=== PATIENT | male | born 1955 | race Caucasian/White ===

== ENCOUNTER 2025-01-05 08:44 | Emergency (ER) | payer BC, MEDICARE ==
[2025-01-05] MEDS: traMADol 50 MG Tab PO ONE (09:28)
[2025-01-05 09:29] LABS: BASOPHILS ABSOLUTE AUTO 0.05 K/uL (0.02-0.10); BASOPHILS PERCENT AUTO 0.4 % (0.0-0.5); EOSINOPHILS ABSOLUTE AUTO 0.47 K/uL (0.04-0.40); EOSINOPHILS PERCENT AUTO 3.4 % (1.0-5.0); HEMATOCRIT 40.2 % (40.0-54.0); HEMOGLOBIN 13.1 g/dL (13.0-18.0); LYMPHOCYTES ABSOLUTE AUTO 3.28 K/uL (1.50-4.00); LYMPHOCYTES PERCENT AUTO 23.9 % (20.0-40.0); MEAN CORPUSCULAR HEMOGLOBIN 27.3 pg (27.0-32.0); MEAN CORPUSCULAR HGB CONC 32.6 g/dL (31.0-35.0); MEAN CORPUSCULAR VOLUME 84 fL (76-96); MEAN PLATELET VOLUME 8.9 fL (6.0-10.0); MONOCYTES ABSOLUTE AUTO 1.03 K/uL (0.20-0.80); MONOCYTES PERCENT AUTO 7.5 % (3.0-10.0); NEUTROPHILS ABSOLUTE AUTO 8.91 K/uL (2.00-7.50); NEUTROPHILS PERCENT AUTO 64.8 % (45.0-70.0); PLATELET COUNT,PLT 313 K/uL (150-400); RED BLOOD CELL COUNT 4.79 M/uL (4.50-6.50); RED CELL DISTRIBUTION WIDTH 16.1 % (11.0-16.0); WHITE BLOOD CELL COUNT,WBC 13.7 K/uL (4.0-11.0)
[2025-01-05] MEDS: Ibuprofen 800 MG Tab PO ONE (09:49)
[2025-01-05 09:58] LABS: A/G RATIO 0.9 (0.8-2.0); ALBUMIN 3.7 g/dL (3.4-5.0); ANION GAP 15.8 mmol/L (5.0-15.0); BILIRUBIN TOTAL 0.9 mg/dL (0.0-1.0); BUN/CREATININE RATIO 9.7 (6-25); CALCIUM 9.2 mg/dL (8.5-10.1); CARBON DIOXIDE,CO2 24.4 mmol/L (21.0-32.0); CREATININE 0.93 mg/dL (0.70-1.30); EST CRCL DRUG DOSING (CG) 74.57 mL/min; POTASSIUM,K 4.2 mmol/L (3.5-5.1); PROTEIN TOTAL,TP 7.8 g/dL (6.4-8.2)
[2025-01-05 10:00] LABS: INFLUENZA A NAA NEGATIVE (NEGATIVE); INFLUENZA B NAA NEGATIVE (NEGATIVE)
[2025-01-05] MEDS ORDERED: Amoxicillin/Clavulanate K 875-125 MG Tab ONE (10:00)
[2025-01-05] MEDS ORDERED: Ciprofloxacin 0.3% Ophth Soln 2.5 ML Bottle ONE (10:00)
[2025-01-05 10:01] LABS: CORONAVIRUS COVID-19 NAA NEGATIVE (NEGATIVE)
[2025-01-05] MEDS: cefTRIAXone 1 GM Vial IM ONE (10:12)
== END 2025-01-05 10:23 | disposition home or self-care (01) ==
LOC: LB.ED 08:44
DX: H60.311 Diffuse otitis externa, right ear (principal); I10 Essential (primary) hypertension; K21.9 Gastro-esophageal reflux disease without esophagitis; Z88.2 Allergy status to sulfonamides; Z88.8 Allergy status to other drugs, medicaments and biological substances; Z79.899 Other long term (current) drug therapy
CPT/HCPCS: 0240U; 36415; 80053; 83605; 85025; 87651; 96372; 99283; A9270-GY; J0696